=== PATIENT | female | born 1975 | race Caucasian/White ===

== ENCOUNTER → 2016-11-30 | Day surgery (SDC) | payer OTHER ==
[~2016-11-30] MED LIST: LIDOCAINE 2% MDV (20MG/ML) 20ML VIAL IV ONE; PROPOFOL 10 MG/ML VIAL IV ONE
--- NOTE | 2016-12-03 08:00 | Operative Note ---
DATE OF SURGERY: 11/30/2016 SURGEON: Maryam Hewitt MD OPERATION: ESOPHAGOGASTRODUODENOSCOPY. INDICATIONS: This is a 41-year-old female with right upper quadrant abdominal pain who has had a negative imaging studies and presented for esophagogastroduodenoscopy. POSTOPERATIVE DIAGNOSES: 1. Normal esophagus. 2. Mild gastritis. 3. Normal duodenum. ANESTHESIA: Sedation is per Anesthesia. Pulse oximetry was monitored throughout the procedure to maintain O2 saturation of 90% or greater. Supplemental oxygen was administered via nasal cannula. Cardiac and vital signs were monitored throughout the duration of the procedure, and they were stable. The procedure of esophagogastroduodenoscopy and risks and benefits of the procedure, including the risk of bleeding and perforation, among others, were explained to the patient who voiced understanding and desired to have the procedure done. Physical examination was performed, and the patient was found stable for sedation. PROCEDURE: The patient was placed in the left lateral position. Sedation was initiated. A plastic bite block was inserted into the oral cavity. The Olympus [id number] gastroscope was introduced into the oral cavity and advanced to the proximal esophagus without difficulty. The esophageal mucosa was carefully examined upon introduction of the gastroscope. The proximal, mid, and distal esophageal mucosa appeared normal. The gastroscope was then advanced into the stomach, and surveillance of the stomach revealed diffuse erythema along the gastric fundus and antrum but no ulcers were noted. The gastroscope was then withdrawn into the stomach and retroflexion was performed. There were no other lesions noted. The gastroscope was then straightened and withdrawn while carefully examining the gastric and esophageal mucosa. No other lesions noted. Multiple duodenal and gastric biopsies were obtained. She remained with stable vital signs and was transferred to the recovery room. RECOMMENDATIONS: 1. The patient is to continue on her proton pump inhibitors. 2. She will follow up with Dr. Rodrigues and I would be happy to see her back as needed. Thank you for allowing me to participate in the care of your patient. Maryam Hewitt MD CC: Dr. Tremayne Rodrigues [facility]
== END | disposition home or self-care (01) ==
LOC: HOP 06:47
PROVIDERS: ATTEND Internal Medicine Gastroenterology
DX: K29.70 Gastritis, unspecified, without bleeding (principal); R11.2 Nausea with vomiting, unspecified; M06.9 Rheumatoid arthritis, unspecified
CPT/HCPCS: 81025